=== PATIENT | male | born 1955 | race Caucasian/White ===

== ENCOUNTER 2017-06-06 09:27 | Emergency (ER) | payer OTHER ==
[2017-06-06] MEDS ORDERED: ASPIRIN 81 MG CHEWABLE TAB PO ONE (09:30)
[2017-06-06 09:40] VITALS: TEMP 98.4
--- NOTE | 2017-06-06 09:44 | EDPHY ---
H & P Time Seen by Provider: 06/06/17 09:29 HPI/ROS: HPI Left mid back pain. 61-year-old male by private vehicle. Recently flew back from [place]. Prior history of pulmonary embolism. Complains of left upper flank pain, pain below his scapular angle which he describes as pleurisy and positional. Onset yesterday afternoon. Describes it as a dull ache when resting. Reports that when he moves from [id number] it is very sharp and worse. He reports pain is worse with taking a deep breath. No shortness of breath specifically at rest. He denies chest pain. No fever. No cough. Patient reports he took 325 mg of chewed aspirin just prior to arrival. ROS: Constitutional: No fever, no chills. No weakness. Eyes: No discharge. No changes in vision. ENT: No sore throat. No nasal congestion or rhinorrhea. Respiratory: No cough. No shortness of breath. Cardiac: No chest pain, no palpitations. Gastrointestinal: No abdominal pain, no vomiting, no diarrhea. Genitourinary: No hematuria. No dysuria or increased frequency with urination. Musculoskeletal: No back pain. No neck pain. No myalgias or arthralgias. Skin: No rashes. Neurological: No headache. No focal weakness or altered sensation. Past medical history: Thrombocytosis, he has required phlebotomies in the past. His recooperer is Dr. Ro. He also has a history of von Willebrand 's disease as well as pulmonary embolism. He is not currently on anticoagulation or antiplatelet agents. Past surgical history includes appendectomy. Social history: Here by himself. As above. Nonsmoker. Denies alcohol. Physical Exam: General Appearance: Alert, no distress. Moderately obese habitus. This patient is responding to questions appropriately and in full sentences. This patient appears well-hydrated and well-nourished. Eyes: Pupils equal and round no pallor or injection. No lid edema, erythema or injection. Respiratory: There are no retractions, lungs are clear to auscultation with good air movement bilaterally. The chest wall is stable on AP and lateral palpation. He has some vague mild discomfort on palpation of the area below his left scapular angle. No associated erythema, ecchymosis, edema, crepitus noted to this area. Cardiovascular: Regular rate and rhythm. No murmur. Gastrointestinal: Abdomen is soft and nontender, no masses, bowel sounds normal. No focal tenderness at McBurney's point. No Olsen sign. Neurological: Motor sensory function is grossly intact. Cranial nerves are normal. Gait is normal. Skin: Warm and dry, no rashes. Musculoskeletal: Neck is supple and nontender. Extremities are symmetrical. All joints range without pain or impingement. Psychiatric: No agitation. No depression. Database: EKG: Vital signs reviewed. He is afebrile. Vital signs otherwise unremarkable. EKG time is 9:41 a.m.; EKG shows a narrow complex normal sinus rhythm with a ventricular rate of 86. Left axis deviation noted. The CA, QRS, QT intervals are within normal limits. There are no ST-T wave changes indicative of ischemic or injury pattern. No evidence of right heart strain. Interpreted by me. Imaging: Chest x-ray AP portable; the cardiac mediastinal silhouette is unremarkable. No evidence of infiltrate or pneumothorax. No acute cardiopulmonary disease process noted. Interpreted by me. Procedures: Emergency department course: Sitting upright on the gurney. He denies any significant pain. IV was placed. He was placed on a monitor. EKG performed and reviewed by myself. 10:40 a.m., patient re-evaluated. Resting comfortably at this time. No pain or discomfort. Results of chest x-ray, EKG and blood work discussed with him. Results of his CBC are comparable to prior blood draws. He tells me that this pain feels similar to his pleurisy which she has had in the past and not similar to his pulmonary embolism. His presentation is not consistent with acute coronary syndrome or pneumonia as well. 11:45 a.m., patient re-evaluated. Resting comfortably at this time. Denies any pain. Results of his urinalysis reviewed. I discussed admission for observation. I discussed the reasoning for this. He engaged in shared decision making. He does not want to be admitted and is declining admission. He has been well informed. He has capacitance and competence to make this decision. I reviewed follow up with him. Strict return to emergency department precautions were discussed with him. All of his questions were answered. He was discharged in good condition. Differential Diagnosis: The differential diagnosis on this patient includes but is not limited to pleurisy, costochondritis. Acute coronary syndrome, pulmonary embolism, pneumonia, pneumothorax, nephrolithiasis unlikely. This represents a partial list of diagnoses considered. These considerations are based on history, physical exam, past history, reassessment and diagnostic testing. Smoking Status: Never smoked Constitutional: Initial Vital Signs Temperature (C) 36.9 C 06/06/17 09:30 Heart Rate 96 06/06/17 09:30 Respiratory Rate 20 06/06/17 09:30 Blood Pressure 129/85 H 06/06/17 09:30 O2 Sat (%) 95 06/06/17 09:30 O2 Delivery Mode Room Air Allergies/Adverse Reactions: Penicillins Allergy (Verified 06/06/17 09:40) Home Medications: Medication Instructions Recorded ASPIRIN 04/15/14 Medical Decision Making - Diagnostics Imaging Results: Imaging Impressions Chest X-Ray 06/06/17 09:30 Impression: Clear lungs. Negative portable chest. - Data Points Laboratory Results: Laboratory Results 06/06/17 09:56 06/06/17 09:56 06/06/17 06/06/17 06/06/17 11:30 09:56 09:56 WBC RBC Hgb Hct MCV MCH MCHC RDW Plt Count MPV Neut % (Auto) Lymph % (Auto) [place] % (Auto) Eos % (Auto) Baso % (Auto) Nucleat RBC Rel Count Absolute Neuts (auto) Absolute Lymphs (auto) Absolute Monos (auto) Absolute Eos (auto) Absolute Basos (auto) Absolute Nucleated RBC Immature Gran % Immature Gran # Platelet Estimate Hypochromasia Microcytic Cells Oval Macrocytes PT 16.5 SEC H SEC (12.0-15.0) INR 1.36 H (0.83-1.16) APTT 45.8 SEC H SEC (23.0-38.0) D-Dimer < 0.27 ug/mLFEU ug/mLFEU (0.00-0.50) Sodium 140 mEq/L mEq/L (134-144) Potassium 5.0 mEq/L mEq/L (3.5-5.2) Chloride 103 mEq/L mEq/L (97-110) Carbon Dioxide 22 mEq/l mEq/l (22-31) Anion Gap 15 mEq/L mEq/L (8-16) BUN 12 mg/dL mg/dL (7-23) Creatinine 0.9 mg/dL mg/dL (0.7-1.3) Estimated GFR > 60 Glucose 137 mg/dL H mg/dL (70-100) Calcium 9.1 mg/dL mg/dL (8.5-10.4) Creatine Kinase 80 IU/L IU/L (0-224) CK-MB (CK-2) Fraction 1.59 ng/mL ng/mL (0.00-4.55) Troponin I < 0.012 ng/mL ng/mL (0.000-0.034) Urine Color YELLOW Urine Appearance CLEAR Urine pH 7.0 (5.0-7.5) Ur Specific Custer <= 1.005 (1.002-1.030) Urine Protein NEGATIVE (NEGATIVE) Urine Ketones NEGATIVE (NEGATIVE) Urine Blood NEGATIVE (NEGATIVE) Urine Nitrate NEGATIVE (NEGATIVE) Urine Bilirubin NEGATIVE (NEGATIVE) Urine Urobilinogen 0.2 EU EU (0.2-1.0) Ur Leukocyte Esterase NEGATIVE (NEGATIVE) Urine Glucose NEGATIVE (NEGATIVE) 06/06/17 09:56 WBC 9.89 10^3/uL H 10^3/uL (3.80-9.50) RBC 7.30 10^6/uL H 10^6/uL (4.40-6.38) Hgb 16.5 g/dL g/dL (13.7-17.5) Hct 53.2 % H % (40.0-51.0) MCV 72.9 fL L fL (81.5-99.8) MCH 22.6 pg L pg (27.9-34.1) MCHC 31.0 g/dL L g/dL (32.4-36.7) RDW 21.4 % H % (11.5-15.2) Plt Count 510 10^3/uL H 10^3/uL (150-400) MPV 9.2 fL fL (8.7-11.7) Neut % (Auto) 79.0 % H % (39.3-74.2) Lymph % (Auto) 9.0 % L % (15.0-45.0) [place] % (Auto) 8.2 % % (4.5-13.0) Eos % (Auto) 2.8 % % (0.6-7.6) Baso % (Auto) 0.6 % % (0.3-1.7) Nucleat RBC Rel Count 0.0 % % (0.0-0.2) Absolute Neuts (auto) 7.81 10^3/uL H 10^3/uL (1.70-6.50) Absolute Lymphs (auto) 0.89 10^3/uL L 10^3/uL (1.00-3.00) Absolute Monos (auto) 0.81 10^3/uL H 10^3/uL (0.30-0.80) Absolute Eos (auto) 0.28 10^3/uL 10^3/uL (0.03-0.40) Absolute Basos (auto) 0.06 10^3/uL 10^3/uL (0.02-0.10) Absolute Nucleated RBC 0.00 10^3/uL 10^3/uL (0-0.01) Immature Gran % 0.4 % % (0.0-1.1) Immature Gran # 0.04 10^3/uL 10^3/uL (0.00-0.10) Platelet Estimate INCREASED H (ADEQ) Hypochromasia 2+ H Microcytic Cells 2+ H Oval Macrocytes 1+ H PT INR APTT D-Dimer Sodium Potassium Chloride Carbon Dioxide Anion Gap BUN Creatinine Estimated GFR Glucose Calcium Creatine Kinase CK-MB (CK-2) Fraction Troponin I Urine Color Urine Appearance Urine pH Ur Specific Custer Urine Protein Urine Ketones Urine Blood Urine Nitrate Urine Bilirubin Urine Urobilinogen Ur Leukocyte Esterase Urine Glucose Medications Given: Discontinued Medications Aspirin (Aspirin) 324 mg PO EDNOW ONE Stop: 06/06/17 09:31 Last Admin: 06/06/17 09:51 Dose: Not Given Sodium Chloride (Ns) 500 mls @ 0 mls/hr IV EDNOW ONE PRN Reason: Wide Open Stop: 06/06/17 09:58 Last Admin: 06/06/17 10:00 Dose: Not Given Departure - Departure Disposition: Home, Routine, Self-Care Clinical Impression: Upper back pain on left side, Pleurisy Condition: Good Instructions: Pleurisy (ED), Back Pain (ED) Additional Instructions: Read and follow provided instructions. Follow-up with your primary care physician on Friday for re-evaluation . Ibuprofen dosin mg every 6 hours with meals for the next 2-3 days only. Take only as needed for pain. Return to the emergency department immediately for worsening pain, chest pain specifically, shortness of breath, fever, cough or other serious concerns. Referrals: Ivonne Barraza MD [Primary Care Provider] - As per Instructions
--- NOTE | 2017-06-06 09:45 | CPEKG ---
Heart Rate: 86 RR Interval: 698 P-R Interval: 176 QRSD Interval: 92 QT Interval: 384 QTC Interval: 460 P Pelham: 65 QRS Pelham: -38 T Wave Pelham: 23 EKG Severity - BORDERLINE ECG - EKG Impression: SINUS RHYTHM EKG Impression: LEFT AXIS DEVIATION EKG Impression: CONSIDER ANTERIOR INFARCT Electronically Signed By: Zana Crawford 06-Jun-2017 09:49:10
[2017-06-06] MEDS ORDERED: NS 500 ML IV ONE (09:57)
[2017-06-06 09:59] LABS: % IMMATURE GRANULYOCYTES 0.4 % (0.0-1.1); ABSOLUTE IMMATURE GRANULOCYTES 0.04 10^3/uL (0.00-0.10); ADD DIFF? NO; ADD MORPH? YES; ADD SCAN? NO; ATYPICAL LYMPHOCYTE FLAG 0 (0-99); FRAGMENT RBC FLAG 40 (0-99); HEMATOCRIT 53.2 % (40.0-51.0); HEMOGLOBIN 16.5 g/dL (13.7-17.5); LEFT SHIFT FLG 0 (0-99); LIPEMIA HEMOLYSIS FLAG 80 (0-99); MEAN CELL HEMOGLOBIN 22.6 pg (27.9-34.1); MEAN CELL VOLUME 72.9 fL (81.5-99.8); MEAN PLATELET VOLUME 9.2 fL (8.7-11.7); PLATELET CLUMPS FLAG 0 (0-99); PLATELET COUNT 510 10^3/uL (150-400)
[2017-06-06 10:08] LABS: RED CELL DISTRIBUTION WIDTH 21.4 % (11.5-15.2)
[2017-06-06 10:18] LABS: INR 1.36 (0.83-1.16); PROTIME(PATIENT) 16.5 SEC (12.0-15.0)
[2017-06-06 10:19] LABS: APTT 45.8 SEC (23.0-38.0)
[2017-06-06 10:24] LABS: ANION GAP 15 mEq/L (8-16); CALCIUM 9.1 mg/dL (8.5-10.4); CARBON DIOXIDE 22 mEq/l (22-31); CHLORIDE 103 mEq/L (97-110); CREATININE 0.9 mg/dL (0.7-1.3); GLOMERULAR FILTRATION RATE > 60; GLUCOSE 137 mg/dL (70-100); SODIUM 140 mEq/L (134-144)
[2017-06-06 10:29] LABS: HYPOCHROMIA 2+; MACROCYTES 1+; MICROCYTES 2+; PLATELET ESTIMATE INCREASED (ADEQ)
[2017-06-06 10:35] LABS: CREATINE KINASE-MB FRACTION 1.59 ng/mL (0.00-4.55); TROPONIN I < 0.012 ng/mL (0.000-0.034)
[2017-06-06 11:36] VITALS: RESP 20; O2SAT 96
[2017-06-06 11:42] LABS: COLOR YELLOW; LEUKOCYTE ESTERASE,URINE NEGATIVE (NEGATIVE); NITRITE,URINE NEGATIVE (NEGATIVE)
[2017-06-06 12:01] VITALS: BP 114/76; PULSE 78
== END 2017-06-06 11:52 | disposition home or self-care (01) ==
LOC: CED 09:27
DX: R09.1 Pleurisy (principal); M54.6 Pain in thoracic spine
CPT/HCPCS: 71010-PO; 80048-PO; 81003-PO; 82550-PO; 82553-PO; 84484-PO; 85025-PO; 85378-PO; 85610-PO; 85730-PO

== ENCOUNTER 2018-11-17 15:50 | Inpatient (IN) | payer OTHER ==
--- NOTE | 2018-11-17 16:31 | EDPHY ---
HPI/HX/ROS/PE/MDM Narrative: CHIEF COMPLAINT: Loss of vision in R eye HISTORY OF PRESENT ILLNESS: This patient is a 62-year-old male with history of polycythemia vera, splenomegaly, Von Willebrand disease, and hypertension. He was recently admitted at [facility] for a ruptured spleen likely due to straining with severe vomiting. On evening, five days ago, he noted a "stripe" down the middle of his right visual field, extending from the top nearly to the middle, with a jagged lower border. He denies any eye pain. He has frequent diplopia, ongoing since 19 following trauma to the right eye. He denies headache. The patient has ongoing left-sided abdominal pain, largely unchanged since his discharge. He denies any hematemesis, hemoptysis, or hematochezia. He did have an episode of epistaxis, but otherwise denies any unusual bleeding. He endorses some hot flashes and chills, and mild confusion/ amnesia. He has history of peripheral neuropathy, and denies any changes. No chest pain, shortness of breath, palpitations, vomiting, diarrhea, urinary complaints, headache, lightheadedness. REVIEW OF SYSTEMS: A comprehensive 10 system review of systems is otherwise negative aside from elements mentioned in the history of present illness and medical decision making. PAST MEDICAL HISTORY: Polycythemia vera, splenomegaly, Von Willebrand disease, and hypertension. Takes ASA, hydroxyurea. History of PE following a surgery 12 years ago. Not currently anticoagulated. SOCIAL HISTORY: Oncologist Dr. Ro, Dr. Maya. Nonsmoker. , at bedside. Does not abuse alcohol or illicit drugs. Originally from [place]. VITAL SIGNS: Reviewed by me GENERAL: Pale. Well-developed, well-nourished, resting comfortably in no respiratory distress. HEENT: Atraumatic. Eyes: Patient has inability to look up with right eye, which he notes is chronic for him. No icterus, no injection. Mouth: moist mucous membranes. No erythema or lesions. Neck: supple with no adenopathy. LUNGS: Clear to auscultation bilaterally, no wheezes, rhonchi or rales. CARDIAC: Regular rate and rhythm, no rubs, murmurs or gallops. ABDOMEN: Firm tenderness over LUQ and left lateral abdominal wall, no ecchymosis. BACK: No CVA tenderness. EXTREMITIES: No trauma. No edema. Range of motion is normal throughout. NEURO: Alert and oriented, grossly nonfocal. SKIN: Warm and dry, no rash. PSYCHIATRIC: Normal mentation, no agitation. Portions of this note were transcribed by a medical engineer. I personally performed a history, physical exam, medical decision making, and confirmed accuracy of information the transcribed note. ED Course: 62 year old male with history of polycythemia vera, Von Willebrand disease, and recent admission for splenic rupture presents with concerns due to segmental loss of vision in right visual field. Plan for CT per request of his providers at [facility]. 16:[address] Zafar, radiologist. CT head and CTA head/neck are negative for acute processes. Platelets critically elevated at 3 million. WBC elevated at 40,000. 18:[address] Stanford oncologist. Recommend admission to the hospital. Patient is certainly at increased risk for stroke. Plan to administer extra dose of hydroxyurea. 18:46 Spoke with hospitalist service. Dr. Lugo accepts admission for right eye vision loss, polycythemia vera, thrombocytosis. 20:00 Patient's now appears to be in atrial fibrillation. Heart rate is irregularly irregular, rate 103-120. He denies any history of atrial fibrillation in the past. Patient states that about one hour ago, he felt he had a spasm in his right chest. He does note that he has had discomfort in his left clavicle area for the past 2-3 days. Patient tells me that he was most concerned not about the increasing heart rate but about the blood sugar and has concerns about is that mean he is bleeding again. Plan for repeat i-stat chem 8 , i-stat troponin. 12-LEAD EKG: Please see the full report in [facility]. My interpretation: Atrial fibrillation Repeat troponin 0.00. Repeat I-stat showed elevated creatinine of 2.4. This is markedly elevated compared to earlier creatinine of 0.9. We will repeat this test in the lab. Repeat CBC is normal with no evidence of acute hemorrhage. Repeat creatinine in the lab is 0.8. Previously noted elevated creatinine appears to be a machine error. Plan to proceed with admission as above. MDM: My differential diagnosis Differential diagnoses for the patient's symptom complex was considered including but not limited to arterial thrombus, stroke, vitreous hemorrhage, embolic stroke, thrombocytosis. - Data Points Imaging Results: Imaging Impressions Head CT 11/17/18 16:32 Impression: 1. No acute intracranial process. 2. Groundglass subcentimeter lesion in the midline frontal bone is incompletely characterized but probably represents a benign process. CT Angiogram Head and Neck With Contrast History: visual field cut for 5 days hx polycythemia vera. Comparison: Unenhanced CT head same day. Technique: Axial contrast-enhanced images were obtained from the vertex through the thoracic inlet following the uneventful intravenous administration of 85 mL Isovue-370. Multiplanar reformations were performed. Dose reduction techniques were utilized. Findings: Angiogram Head: The A1 and A2 segments of the anterior cerebral arteries are patent. The M1 and M2 segments of the middle cerebral arteries are patent. The anterior communicating artery is normal. The basilar artery and P1 and P2 segments of the posterior cerebral arteries are patent. No significant stenoses are identified. There is no visible aneurysm. There is no visible hemorrhage or vascular malformation. Angiogram Neck: The visible aorta is normal caliber. Conventional three-vessel arch anatomy is present. There is no significant stenosis in the common and internal carotid arteries . There is no significant vertebral artery stenosis . Irregularity of the right vertebral artery at the level of C2 is probably related to streak artifact. The subclavian arteries are patent in their visualized extent. No pathologically enlarged lymph nodes are identified. No aggressive osseous lesions are present. Mild degenerative changes of the cervical spine. There is a partially visualized left pleural effusion. Impression: 1. Normal CT angiogram of the head and neck. 2. Partially visualized left pleural effusion. Stenoses are calculated using [place] Symptomatic Carotid Endarterectomy Trial (NASCET) criteria. Findings and recommendations discussed with Tiffanie Zelaya MD at 1655 hour, 11/17/2018. Head CTA 11/17/18 16:32 Impression: 1. Normal CT angiogram of the head and neck. 2. Partially visualized left pleural effusion. Stenoses are calculated using [place] Symptomatic Carotid Endarterectomy Trial (NASCET) criteria. Findings and recommendations discussed with Tiffanie Zelaya MD at 1655 hour, 11/17/2018. Neck CTA 11/17/18 16:32 Impression: 1. Normal CT angiogram of the head and neck. 2. Partially visualized left pleural effusion. Stenoses are calculated using [place] Symptomatic Carotid Endarterectomy Trial (NASCET) criteria. Findings and recommendations discussed with Tiffanie Zelaya MD at 1655 hour, 11/17/2018. Imaging: Discussed imaging studies w/ manager call center Radiologist Laboratory Results: Laboratory Results 11/17/18 17:07 11/17/18 17:07 11/17/18 11/17/18 11/17/18 17:18 17:07 17:07 WBC 39.58 10^3/uL H 10^3/uL (3.80-9.50) RBC 4.52 10^6/uL 10^6/uL (4.40-6.38) Hgb 10.3 g/dL L g/dL (13.7-17.5) Hct 35.2 % L % (40.0-51.0) MCV 77.9 fL L fL (81.5-99.8) MCH 22.8 pg L pg (27.9-34.1) MCHC 29.3 g/dL L g/dL (32.4-36.7) RDW 19.1 % H % (11.5-15.2) Plt Count 2971 10^3/uL H* 10^3/uL (150-400) MPV 9.4 fL fL (8.7-11.7) Neut % (Auto) Not Reported Lymph % (Auto) Not Reported Bowman % (Auto) Not Reported Eos % (Auto) Not Reported Baso % (Auto) Not Reported Nucleat RBC Rel Count Not Reported Absolute Neuts (auto) Not Reported Absolute Lymphs (auto) Not Reported Absolute Monos (auto) Not Reported Absolute Eos (auto) Not Reported Absolute Basos (auto) Not Reported Absolute Nucleated RBC Not Reported Immature Gran % Not Reported Seg Neutrophils % 87.0 % % Band Neutrophils % 0.0 % % Lymphocytes % 4.0 % % Monocytes % 9.0 % % Eosinophils % 0.0 % % Basophils % 0.0 % % Metamyelocytes % 0.0 % % Myelocytes % 0.0 % % Promyelocytes % 0.0 % % Blast Cells % 0.0 % % Immature Gran # Not Reported Absolute Seg Neuts 35.01 10^3/uL H 10^3/uL (1.70-6.50) Absolute Band Neuts 0.00 10^3/uL 10^3/uL (0.00-0.70) Absolute Lymphocytes 1.61 10^3/uL 10^3/uL (1.00-3.00) Absolute Monocytes 3.62 10^3/uL H 10^3/uL (0.30-0.80) Absolute Eosinophils 0.00 10^3/uL L 10^3/uL (0.03-0.40) Absolute Basophils 0.00 10^3/uL L 10^3/uL (0.02-0.10) Absolute Metamyelocyte 0.00 10^3/mL 10^3/mL (0.00-0.00) Absolute Myelocytes 0.00 10^3/mL 10^3/mL (0.00-0.00) Absolute Promyelocytes 0.00 10^3/uL 10^3/uL (0.00-0.00) Absolute Plasma Cells 0.00 10^3/uL 10^3/uL (0.00-0.00) Nucleated RBCs 0 /100 WBC /100 WBC (0-0) Absolute Blast Cells 0.00 10^3/uL 10^3/uL (0.00-0.00) Plasma Cells % 0.0 % % Platelet Estimate INCREASED H (ADEQ) Polychromasia 1+ H Hypochromasia 2+ H Microcytic Cells 2+ H Tear Drop Cells 1+ H Elliptocytes 1+ H Smear Review By Pending Sodium 131 mEq/L L mEq/L (135-145) Potassium 5.8 mEq/L H mEq/L (3.5-5.2) Chloride 101 mEq/L mEq/L (97-110) Carbon Dioxide 24 mEq/l mEq/l (22-31) Anion Gap 6 mEq/L mEq/L (6-14) BUN 13 mg/dL mg/dL (7-23) Creatinine 0.9 mg/dL mg/dL (0.7-1.3) Estimated GFR > 60 Glucose 90 mg/dL mg/dL (70-100) Calcium 9.7 mg/dL mg/dL (8.5-10.4) POC Troponin I 0.00 ng/mL ng/mL (0.00-0.08) Medications Given: Diltiazem/Dextrose (Diltiazem 125mg/125ml (Premix)) 125 mls @ 0 mls/hr IV CONT RASHARD; Per Protocol PRN Reason: Protocol Stop: 05/16/19 22:44 Last Admin: 11/17/18 23:44 Dose: 125 mls Oxycodone HCl (Oxycodone Ir) 5 mg PO Q4 PRN PRN Reason: Pain, Severe Able to Take PO Stop: 11/27/18 21:28 Last Admin: 11/17/18 23:42 Dose: 5 mg Discontinued Medications Hydroxyurea (Hydrea) 500 mg PO EDNOW ONE Stop: 11/17/18 18:12 Last Admin: 11/17/18 19:14 Dose: 500 mg Sodium Chloride (Ns) 1,000 mls @ 0 mls/hr IV ONCE ONE; Wide Open PRN Reason: Protocol Stop: 11/17/18 18:12 Last Admin: 11/17/18 19:15 Dose: 1,000 mls Point of Care Test Results: Chemistry 11/17/18 17:18 POC Troponin I 0.00 ng/mL ng/mL (0.00-0.08) General Time Seen by Provider: 11/17/18 16:10 Initial Vital Signs: Initial Vital Signs Temperature (C) 36.7 C 11/17/18 15:58 Heart Rate 90 11/17/18 15:58 Respiratory Rate 18 11/17/18 15:58 Blood Pressure 121/78 H 11/17/18 15:58 O2 Sat (%) 96 11/17/18 15:58 O2 Delivery Mode Room Air Allergies/Adverse Reactions: Penicillins Allergy (Verified 11/17/18 15:57) Home Medications: Medication Instructions Recorded Acetaminophen [Tylenol ES 500 mg 1,000 mg PO BID 11/17/18 (*)] Aspirin EC [Aspirin EC 81 mg (*)] 324 mg PO DAILY 11/17/18 Herbals/Supplements -Info Only 1 ea PO DAILY 11/17/18 Hydroxyurea [Hydrea 500 mg (*)] 500 mg PO DAILY 11/17/18 Ibuprofen [Advil] 400 mg PO DAILY PRN 11/17/18 Melatonin [Melatonin 3 MG (*)] 3 mg PO HS PRN 11/17/18 Multivitamins [Multivitamin (*)] 1 each PO DAILY 11/17/18 Polyethylene Glycol 3350 [Miralax 17 gm PO BID PRN 11/17/18 17 gm (*)] Tamsulosin HCl [Flomax 0.4 MG (*)] 0.4 mg PO HS 11/17/18 oxyCODONE IR [Oxycodone Ir (*)] 5 mg PO Q4 PRN 11/17/18 Departure - Departure Disposition: [facility] Acute Clinical Impression: Thrombocytosis, Polycythemia vera, Splenic rupture with embolization Atrial fibrillation Qualifiers: Atrial fibrillation type: unspecified Qualified Code(s): I48.91 - Unspecified atrial fibrillation Condition: Fair Report Scribed for: Tiffanie Zelaya Report Scribed by: Laisha Glover Date of Report: 11/17/18 Time of Report: 16:30
[2018-11-17] MEDS ORDERED: IOHEXOL 350mgI/ML (OMNIPAQUE) 150 ML BTL IV ONE (17:01)
[2018-11-17 17:30] LABS: PLATELET COUNT 2971 10^3/uL (150-400)
[2018-11-17] MEDS ORDERED: HYDROXYUREA 500 MG CAP PO ONE (18:11)
[2018-11-17] MEDS ORDERED: NS 1,000 ML IV ONE (18:11)
[2018-11-17 19:39] LABS: INR 1.16 (0.83-1.16)
[2018-11-17 21:12] LABS: PLATELET COUNT 2913 10^3/uL (150-400)
[2018-11-17] MEDS ORDERED: oxyCODONE IR 5 MG TAB PO PRN (21:28)
[2018-11-17] MEDS ORDERED: ONDANSETRON 4 MG/2 ML VIAL IVP PRN (21:28)
[2018-11-17] MEDS ORDERED: ONDANSETRON DISINTEGRATING 4 MG TAB PO PRN (21:28)
[2018-11-17] MEDS ORDERED: HYDROmorphONE/DILAUDID 1 MG/ML INJ IVP PRN (21:28)
[2018-11-17] MEDS ORDERED: ACETAMINOPHEN 325 MG TAB PO PRN (21:28)
--- NOTE | 2018-11-17 21:54 | PDGENHP ---
History and Physical - Chief Complaint right eye vision loss - History of Present Illness 62yo M with essential thrombocytosis, ERIC-2 positive polycythemia vera, remote provoked PE off anticoagulation, recent hospitalization for splenic laceration complicated by hemoperitoneum requiring urgent IR splenic artery embolization ( discharged from [facility] on 11/09) presents with right eye vision changes. Went to [facility] today and reported that he had acute onset vision loss in upper outer quadrant of right eye last (5 days ago). His oncologist instructed him to immediately go to the ED. These vision changes have persisted and are still present. He otherwise denies any neurologic symptoms. He has mild but stable left sided abdominal pain since leaving the hospital last week. No other signs of blood loss. In the ED, his platelets were found to be 3 million. His WBC was approximately 40k and hemoglobin 10. Dr Stanford was consulted and recommended that he receive an additional dose of hydroxyurea, which was given. While in the ED, the patient went into afib with HR in the 140s. His BP was stable and he was asymptomatic. He is being admitted for further evaluation of management of above issues. Case discussed with ED physician Tiffanie Zelaya. History Information - Allergies/Home Medication List Allergies/Adverse Reactions: Penicillins Allergy (Verified 11/17/18 15:57) Home Medications: Acetaminophen [Tylenol ES 500 mg (*)] 1,000 mg PO BID 11/17/18 [Last Taken Unknown] Aspirin EC [Aspirin EC 81 mg (*)] 324 mg PO DAILY 11/17/18 [Last Taken 11/16/18] Herbals/Supplements -Info Only 1 ea PO DAILY 11/17/18 [Last Taken Unknown] Hydroxyurea [Hydrea 500 mg (*)] 500 mg PO DAILY 11/17/18 [Last Taken 11/17/18] Ibuprofen [Advil] 400 mg PO DAILY PRN 11/17/18 [Last Taken Unknown] Melatonin [Melatonin 3 MG (*)] 3 mg PO HS PRN 11/17/18 [Last Taken Unknown] Multivitamins [Multivitamin (*)] 1 each PO DAILY 11/17/18 [Last Taken Unknown] Polyethylene Glycol 3350 [Miralax 17 gm (*)] 17 gm PO BID PRN 11/17/18 [Last Taken 11/16/18] Tamsulosin HCl [Flomax 0.4 MG (*)] 0.4 mg PO HS 11/17/18 [Last Taken 11/16/18] oxyCODONE IR [Oxycodone Ir (*)] 5 mg PO Q4 PRN 11/17/18 [Last Taken Unknown] I have personally reviewed and updated: family history, medical history, social history, surgical history - Past Medical History Additional medical history: Essential thrombocytosis, ERIC-2 positive polycythemia vera requiring phlebotomy, PE after abdominal surgery 12 years ago - no longer on anticoagulation, recent splenic injury with acute blood loss, acquired von Willebrand disease - Surgical History Additional surgical history: appendectomy, recent splenic artery embolization - Family History Positive for: non-pertinent - Social History Smoking Status: Never smoked Alcohol Use: None Drug Use: None Additional social history: Lives with , who is at bedside. 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 Originally from the [place]. Review of Systems Review of Systems: ROS: 10pt was reviewed & negative except for what was stated in HPI & below Physical Exam Physical Exam: Temp Pulse Resp BP Pulse Ox 36.7 C 120 H 18 105/75 93 11/17/18 15:58 11/17/18 19:40 11/17/18 19:40 11/17/18 19:40 11/17/18 19:40 Constitutional: no apparent distress, appears nourished, not in pain Eyes: PERRL, anicteric sclera, EOMI Ears, Nose, Mouth, Throat: moist mucous membranes, hearing normal, ears appear normal, no oral mucosal ulcers Cardiovascular: no murmur, rub, or gallop, tachycardia, No JVD, No edema Respiratory: no respiratory distress, no rales or rhonchi, clear to auscultation Gastrointestinal: normoactive bowel sounds, soft, non-tender abdomen, distension Genitourinary: no bladder fullness, no bladder tenderness Skin: other (small periumbilical bruise) Musculoskeletal: full muscle strength Neurologic: AAOx3 Psychiatric: interacting appropriately Lab Data & Imaging Review 11/17/18 21:00 11/17/18 20:35 WBC 41.44 10^3/uL (3.80-9.50) H 11/17/18 21:00 RBC 4.83 10^6/uL (4.40-6.38) 11/17/18 21:00 Hgb 11.1 g/dL (13.7-17.5) L 11/17/18 21:00 POC Hgb 13.6 gm/dL (13.7-17.5) L 11/17/18 20:21 Hct 36.8 % (40.0-51.0) L 11/17/18 21:00 POC Hct 40 % (40-51) 11/17/18 20:21 MCV 76.2 fL (81.5-99.8) L 11/17/18 21:00 MCH 23.0 pg (27.9-34.1) L 11/17/18 21:00 MCHC 30.2 g/dL (32.4-36.7) L 11/17/18 21:00 RDW 19.8 % (11.5-15.2) H 11/17/18 21:00 Plt Count 2913 10^3/uL (150-400) H* 11/17/18 21:00 MPV 9.3 fL (8.7-11.7) 11/17/18 21:00 Neut % (Auto) Not Reported 11/17/18 21:00 Lymph % (Auto) Not Reported 11/17/18 21:00 Armstrong % (Auto) Not Reported 11/17/18 21:00 Eos % (Auto) Not Reported 11/17/18 21:00 Baso % (Auto) Not Reported 11/17/18 21:00 Nucleat RBC Rel Count Not Reported 11/17/18 21:00 Absolute Neuts (auto) Not Reported 11/17/18 21:00 Absolute Lymphs (auto) Not Reported 11/17/18 21:00 Absolute Monos (auto) Not Reported 11/17/18 21:00 Absolute Eos (auto) Not Reported 11/17/18 21:00 Absolute Basos (auto) Not Reported 11/17/18 21:00 Absolute Nucleated RBC Not Reported 11/17/18 21:00 Immature Gran % Not Reported 11/17/18 21:00 Seg Neutrophils % 82.5 % 11/17/18 21:00 Band Neutrophils % 0.0 % 11/17/18 21:00 Lymphocytes % 0.0 % 11/17/18 21:00 Monocytes % 8.7 % 11/17/18 21:00 Eosinophils % 4.9 % 11/17/18 21:00 Basophils % 0.0 % 11/17/18 21:00 Metamyelocytes % 0.0 % 11/17/18 21:00 Myelocytes % 0.0 % 11/17/18 21:00 Promyelocytes % 0.0 % 11/17/18 21:00 Blast Cells % 0.0 % 11/17/18 21:00 Immature Gran # Not Reported 11/17/18 21:00 Absolute Seg Neuts 34.19 10^3/uL (1.70-6.50) H 11/17/18 21:00 Absolute Band Neuts 0.00 10^3/uL (0.00-0.70) 11/17/18 21:00 Absolute Lymphocytes 0.00 10^3/uL (1.00-3.00) L 11/17/18 21:00 Absolute Monocytes 3.61 10^3/uL (0.30-0.80) H 11/17/18 21:00 Absolute Eosinophils 2.03 10^3/uL (0.03-0.40) H 11/17/18 21:00 Absolute Basophils 0.00 10^3/uL (0.02-0.10) L 11/17/18 21:00 Absolute Metamyelocyte 0.00 10^3/mL (0.00-0.00) 11/17/18 21:00 Absolute Myelocytes 0.00 10^3/mL (0.00-0.00) 11/17/18 21:00 Absolute Promyelocytes 0.00 10^3/uL (0.00-0.00) 11/17/18 21:00 Absolute Plasma Cells 0.00 10^3/uL (0.00-0.00) 11/17/18 21:00 Nucleated RBCs 0 /100 WBC (0-0) 11/17/18 21:00 Atypical Lymphocytes 1+ H 11/17/18 21:00 Absolute Blast Cells 0.00 10^3/uL (0.00-0.00) 11/17/18 21:00 Plasma Cells % 0.0 % 11/17/18 21:00 Platelet Estimate INCREASED (ADEQ) H 11/17/18 21:00 Polychromasia 1+ H 11/17/18 21:00 Hypochromasia 2+ H 11/17/18 21:00 Microcytic Cells 2+ H 11/17/18 21:00 Tear Drop Cells 1+ H 11/17/18 21:00 Elliptocytes 1+ H 11/17/18 21:00 PT 15.0 SEC (12.0-15.0) 11/17/18 19:15 INR 1.16 (0.83-1.16) 11/17/18 19:15 POC Sodium 136 mEq/L (135-145) 11/17/18 20:21 Sodium 130 mEq/L (135-145) L 11/17/18 20:35 POC Potassium 4.3 mEq/L (3.3-5.0) 11/17/18 20:21 Potassium 5.5 mEq/L (3.5-5.2) H 11/17/18 20:35 POC Chloride 99 mEq/L (97-110) 11/17/18 20:21 Chloride 104 mEq/L (97-110) 11/17/18 20:35 Carbon Dioxide 18 mEq/l (22-31) L 11/17/18 20:35 POC Total CO2 24 mEq/L (22-31) 11/17/18 20:21 Anion Gap 8 mEq/L (6-14) 11/17/18 20:35 POC BUN 9 mg/dL (7-23) 11/17/18 20:21 BUN 11 mg/dL (7-23) 11/17/18 20:35 Creatinine 0.8 mg/dL (0.7-1.3) 11/17/18 20:35 POC Creatinine 2.4 mg/dL (0.7-1.3) H 11/17/18 20:21 Estimated GFR > 60 11/17/18 20:35 Glucose 88 mg/dL (70-100) 11/17/18 20:35 POC Glucose 105 mg/dL (70-100) H 11/17/18 20:21 Calcium 9.0 mg/dL (8.5-10.4) 11/17/18 20:35 POC Troponin I 0.00 ng/mL (0.00-0.08) 11/17/18 20:19 Specimen Hemolysis 108 11/17/18 20:35 Assessment & Plan Assessment: 62yo M with essential thrombocytosis, ERIC-2 positive polycythemia vera, remote provoked PE off anticoagulation, recent hospitalization for splenic injury complicated by acute bleed requiring urgent splenic artery embolization presents with right eye vision loss, severe thrombocytosis. Developed atrial fibrillation in the ED. Plan: 1. Right eye vision loss: Concerning for CVA. Several risk factors for such with afib, thrombocytosis. - Brain MRI pending - Starting heparin gtt - If acute stroke, will need neurology consultation 2. Atrial fibrillation with RVR: New diagnosis per patient. - Diltiazem gtt - Anticoagulation as above (although [id number]=6 so may not need long-term AC for this) - TTE 3. Thrombocytosis: Platelets 3 million, up from 1.6 million at recent hospital discharge and baseline roughly 500k. - Discussed with Dr Stanford. Given additional dose of hydroxyurea. No indication for platelet pheresis. - Continue aspirin, hydroxyurea 4. Recent splenic injury/bleed requiring splenic artery embolization: High risk of bleeding on anticoagulation. - Monitor abdominal exam, H/H - He was vaccinated for meningococcal and pneumococcal disease 10/2018 5. Hyperkalemia: No ECG changes. Possibly due to hemolysis. Down-trending. - Telemetry, recheck in AM 6. Anemia: Hgb 10, improved from 9 on 11/09. - Monitor H/H as above 7. Hyponatremia: Mild. Suspect hypovolemic, s/p 1L NS in ED. - Check in AM VTE ppx: therapeutic anticoagulation Code: full Diet: regular Dispo: Admit as inpatient to step down unit
[2018-11-17] MEDS ORDERED: GADOBUTROL 10 ML VIAL IVP ONE (22:45)
[2018-11-17] MEDS ORDERED: HEPARIN 10,000 UNIT/10 ML MDV (1,000 UNIT/ML) IVP ONE (22:45)
[2018-11-17] MEDS: oxyCODONE IR 5 MG TAB PO PRN (23:42)
[2018-11-17] MEDS: DILTIAZEM HCL/D5W 125 ML IV SCH (23:44)
[2018-11-18] MEDS: HEPARIN/DEXTROSE 500 ML IV SCH ×2 (01:00→22:12)
[2018-11-18] MEDS: oxyCODONE IR 5 MG TAB PO PRN ×5 (04:21→20:20)
[2018-11-18 06:09] LABS: PLATELET COUNT 2936 10^3/uL (150-400)
--- NOTE | 2018-11-18 06:35 | PDMN ---
Medical Necessity Medical necessity: Pt meets inpt criteria per MD order and MCG 505, Atrial Fibrillation, Hematology GRG, Essential (hemorrhagic) thrombocythemia. 62 y/o w/ essential thrombocytosis, ERIC-2 positive polycythemia vera, and recent hospitalization for splenic lac/hemoperitoneum/urgent splenic artery embolization (dc'd on 11/09/18) presented today w/acute onset vision loss, concerning for CVA, also w/afib w/RVR (new dx), thrombocytosis w/platelet count at 2971, hyponatremia (Na 131), hypokalemia (K 6.1). Heparin gtt started, high risk of bleeding due to recent spleen inj, Diltiazem gtt, SDU care, Brain MRI, anticipate>2MN for ongoing eval/management of above.
[2018-11-18] MEDS: ACETAMINOPHEN 500 MG TAB PO SCH ×2 (07:51→20:22)
[2018-11-18] MEDS: ASPIRIN EC 81 MG TAB PO SCH (07:51)
[2018-11-18] MEDS ORDERED: CYCLOPENTOLATE/PHENYLEPHRINE 2 ML OPHT.BTL EACHEYE ONE (08:45)
[2018-11-18] MEDS ORDERED: HYDROXYUREA 500 MG CAP PO SCH (09:00)
[2018-11-18] MEDS ORDERED: TROPICAMIDE 0.5% EACHEYE ONE (09:00)
[2018-11-18] MEDS ORDERED: ENOXAPARIN 40 MG/0.4 ML SYR SC SCH (09:00)
[2018-11-18] MEDS: PANTOPRAZOLE SODIUM 40 MG TAB PO SCH (09:00)
--- NOTE | 2018-11-18 09:12 | HOSPPROG ---
Hospitalist Progress Note Assessment/Plan: DIAGNOSES: * Acute monocular partial visual field loss right eye in the central superior portion of field without ocular pain or trauma -suspect either branch retinal artery or vein occlusion, hemorrhage possible , doubt retinal attachment but also possible * Recent splenic rupture, spontaneous with arterial embolization therapy by interventional radiologist at [facility] in October -still having some discomfort but gradually getting better * New onset atrial fibrillation, rapid rate, rate currently controlled on diltiazem * Hyperkalemia, improving after treatment here * Polycythemia vera, with sudden increase in platelets from 400,000 to 2.9 million and significant leukocytosis with notable increase in monocytes -? New cell count changes due to splenic rupture and embolization -on hydroxyurea; Dr. Tung Maya * Monocytosis and eosinophilia among his white blood cells, ? 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 Gupta who will be able to see the patient today in his office down stairs here and we can Will the patient there from the unit. * Will contact Dr. Cliff Stanford of [facility] for consultation to assess blood count changes, as well as management of any anti platelet or anti coagulation therapy * Need to determine whether this is hemorrhagic, thrombo embolic, or other etiology of vision loss; will stop anticoagulant until we see what the etiology of the eye disorder is * Continue rate control for AFib * Will need meticulous blood pressure control * Check TSH * Echocardiogram Seen by me on hospitalist rounds and multidisciplinary rounds Reviewed in detail with Dr. 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: All AFib, now rate controlled Exam: alert oriented reasonably relaxed Gross bedside external ocular exam right and left is normal other than finding his dysconjugate gaze with superior gaze which is chronic; on a brief bedside visual field examination unable to determine that he has a narrow portion of the central superior visual field in the right eye only impacted with no vision there, all central vision and other visual leonard otherwise intact in both eyes skin warm dry color ok resps not labored lungs clear BSs heart regular abd soft nondistended nontender, bowel sounds present limbs warm, no edema iv site ok Lab data: Potassium now down to 4.9 WBC remains at 39,000 with 3400 monocytes and a mild eosinophilia both noted on differential; formal blood smear review is pending Heparin level in therapeutic range Objective: Vital Signs Temp Pulse Resp BP Pulse Ox 36.8 C 98 18 102/52 L 94 11/18/18 04:00 11/18/18 04:00 11/18/18 04:00 11/18/18 04:00 11/18/18 04:00 Laboratory Results 11/18/18 05:15 11/18/18 06:20 11/17/18 11/18/18 11/19/18 06:59 06:59 06:59 Intake Total 1271.5 Output Total 525 Balance 746.5 PT 15.0 SEC (12.0-15.0) 11/17/18 19:15 INR 1.16 (0.83-1.16) 11/17/18 19:15 ICD10 Worksheet Patient Problems: Problems Problem Status Onset Atrial fibrillation Acute Polycythemia vera Acute Thrombocytosis Acute
--- NOTE | 2018-11-18 11:58 | ASMTCASEMG ---
Living Arrangements What is your living Answers: With Spouse arrangement? Who do you live with? Type Of Residence What kind of residence do Answers: House you live in? Discharge Plan Comments Coordination Status Comments Notes: Patient is a 62yo male who has been admitted for right eye vision loss, concerning for CVA, AFIB, thrombocytosis, recent splenic injury, hyperkalemia, anemia and hyponatremia. No therapies ordered at this time. D/C plan TBD. CM will follow. Date Signed: 11/18/2018 11:57 AM Electronically Signed By:Senia Garcia LCSW
--- NOTE | 2018-11-18 12:18 | GCON ---
[f rep st] CONSULTATION MEDICAL ONCOLOGY FOLLOWUP CONSULTATION DATE OF CONSULTATION: 11/18/2018 REFERRING PHYSICIAN: Baldomero Marques MD REASON FOR CONSULTATION: Ongoing management of polycythemia vera and von Willebrand's disease. RECOMMENDATIONS: 1. Agree with Ophthalmology evaluation to try to find out whether the visual field defect in his rig ht eye is related to thrombotic or hemorrhagic etiology. 2. If the defect in his right eye is not hemorrhagic, I would fully anticoagulate him with low-molec ular heparin at this time. 3. I would continue his increased dose of hydroxyurea to try to bring down his platelet count. 4. The patient does not require phlebotomy for his hemoglobin at this time since he is anemic with a hemoglobin of 10.3. This is likely iron deficiency, which has been induced. 5. We will check the status of his von Willebrand's disease. I have sent a von Willebrand's panel. 6. I have also asked for manual differential to be performed since the patient's white count is much higher than it has been. We will also send a leukemia/lymphoma panel to make sure he is not transfo rming with the elevated white count. ASSESSMENT: This 62-year-old gentleman is followed by our clinic for polycythemia vera. His platele t count has been elevated for approximately 12 years. A couple of years ago, he had developed increa sed hemoglobin and the diagnosis of polycythemia vera was made. He has been managed with phlebotomie s and hydroxyurea. In October of 2018, after a vomiting episode, he developed pain in his left side. This eventually turned out to be a splenic rupture, which was treated with embolization at [facility] . He was in the hospital for approximately 2 weeks. His blood counts have markedly changed since th at hospitalization. His white count has now gone up to approximately 40,000 and his platelet count h as been hovering around 3 million. The patient had been taking 4 baby aspirin per day. He is taking this both for prophylaxis for clotting from his as well as for periodic migraine headache s. At this time, I do not have direct evidence that he has transformed into acute leukemia, but I think that will be further evaluated by the tests as mentioned above. HISTORY OF PRESENT ILLNESS: Please see assessment. PAST MEDICAL HISTORY: Is remarkable for migraine headaches, and von Willebrand's disease. He does n ot have a history of atrial fibrillation which was apparently diagnosed during this admission. FAMILY HISTORY: Remarkable for a maternal grandfather who of colon cancer at age 80. SOCIAL HISTORY: The patient is . He has no children. REVIEW OF SYSTEMS: Currently remarkable for field cut in the upper outer right visual field. He is still having pain in his left flank related to his splenic embolization and bleed. He has periumbili felisa bruising, which he has noted since his splenic rupture and he currently reports no shortness of b reath. He has had no lymphadenopathy that he has noted. Ten-system review is otherwise unremarkable . PHYSICAL EXAMINATION: GENERAL: Reveals a well-developed, alert, conversant white male who has mild pallor sitting in the chair. HEENT: Exam is unremarkable except for the pallor. LUNGS: Reveal no rales or rhonchi today. CARDIAC: Shows a regular rhythm this morning. ABDOMEN: Exam shows distend ed abdomen with firm left flank consistent with his splenomegaly and rupture. SKIN: His skin shows periumbilical ecchymosis, which is likely still residual from his bleeding. EXTREMITIES: He has 1+ lower extremity edema. LABORATORY DATA: His CBC today shows a white count of 38,960 with a hemoglobin of 10.3, an MCV of 77 .3, and a platelet count of 2,936,000. His automated differential showed 33,230 neutrophils. He had a normal absolute lymphocyte count of 1520. His absolute monocytes were elevated at 3430, and he victor d an elevated eosinophil count at 780. His PTT was 42.2, however, I believe this is after he started on heparin which has now been discontinued. His potassium is normal at 4.9 and creatinine is 0.8. Thank very much for allowing us to participate in this pleasant gentleman's hematologic care. We loo k forward to assisting with his management during this hospitalization and beyond. /[id number]/MODL
[2018-11-18 12:27] LABS: PLATELET COUNT 2810 10^3/uL (150-400)
[2018-11-18] MEDS: DILTIAZEM HCL/D5W 125 ML IV SCH (18:56)
[2018-11-18] MEDS: TAMSULOSIN HCL 0.4 MG CAP PO SCH (20:21)
[2018-11-18] MEDS: HYDROXYUREA 500 MG CAP PO SCH (20:21)
[2018-11-18] MEDS: POLYETHYLENE GLYCOL 3350 17 GM PKT PO PRN (20:38)
[2018-11-18] MEDS: HEPARIN 10,000 UNIT/10 ML MDV (1,000 UNIT/ML) IVP PRN (23:07)
[2018-11-19] MEDS: oxyCODONE IR 5 MG TAB PO PRN ×4 (04:35→19:58)
[2018-11-19 05:13] LABS: PLATELET COUNT 2893 10^3/uL (150-400)
[2018-11-19] MEDS: HEPARIN 10,000 UNIT/10 ML MDV (1,000 UNIT/ML) IVP PRN ×2 (06:38→22:17)
[2018-11-19] MEDS: DILTIAZEM SR 90 MG CAP PO SCH ×2 (07:17→19:58)
--- NOTE | 2018-11-19 08:51 | ECHO ---
[email or web address] [address] [address] Main: [phone] Fax: Transthoracic Echocardiogram Name: JESUS FOSTER MR#: [id number] Study Date: 11/18/2018 Study Time: 12:14 PM Date of : 1955 Age: 62 year(s) Height: 185.4 cm (73 in.) Weight: 94.35 kg (208 lb.) BSA: 2.19 m2 Gender: Male Examination: Echo Indication: New onset of atrial fibrillation Image Quality: Contrast: Requested by: Stas Lugo BP: / Heart Rate: Rhythm: Indication: New onset of atrial fibrillation Procedure Staff Laboratory Director: Balaji Cooper RDCS Reading Physician: Dwight Solomon MD Requesting Provider: Conclusions: Normal study Measurements: Chambers Valvular Assessment AV/MV Valvular Assessment TV/PV Normal Normal Normal Name Value Range Name Value Range Name Value Range Ao Suzette (MM): 3.6 cm (2.2 cm-3.7 AV Vmax: 1.51 m/s (1 m/s-1.7 PV Vmax: 0.95 m/s (0.6 m/s-0.9 cm) m/s) m/s) IVSd (2D): 0.9 cm (0.6 cm-1.1 AV maxP mmHg ( - ) PV PGmax: 4 mmHg ( - ) cm) LVOT Vmax: 0.90 m/s (0.7 m/s-1.1 LVDd (2D): 4.4 cm (4.2 cm-5.9 m/s) cm) MV E Vmax: 0.73 m/s ( - ) LVDs (2D): 2.6 cm (2.1 cm-4 MV A Vmax: 0.59 m/s ( - ) cm) MV E/A: 1.24 ( - ) LVPWd (2D): 0.9 cm (0.6 cm-1 cm) LVEF (2D): 70 (>=54 %) RVDd(2D): 2.6 cm (1.9 cm-3.8 cmmm) Continued Measurements: Chambers Valvular Assessment AV/MV Name Value Name Value LADs Lon.7 cm MV E' Septal: 0.07 m/s LA Area: 16.9 cm2 MV E/E' Septal: 10.60 LA Volume: 60 ml MV E/E' Lateral: 11.80 LA Volume Index: 27.4 ml/m2 Patient: JESUS FOSTER Study Date: 11/18/2018 Page 1 of 2 12:14 PM Findings: Left Ventricle: Normal size left ventricle. Normal global systolic LV function. EF is 70 %. No regional wall motion abnormality. Grade 1 diastolic dysfunction (abnormal relaxation). Right Ventricle: Normal size right ventricle. Normal RV function. Left Atrium: The left atrium is normal in size. Right Atrium: The right atrium is normal in size. Mitral Valve: The mitral valve is normal in appearance and function. Trivial mitral valve regurgitation. Aortic Valve: The aortic valve is tri-leaflet. The aortic valve is normal in appearance and function. There is no significant aortic valve regurgitation. Tricuspid Valve: The tricuspid valve is normal in appearance and function. There is no significant tricuspid valve regurgitation. Pulmonic Valve: The pulmonic valve is normal in appearance and function. Trivial pulmonic valve regurgitation. Aorta: The aorta is normal. IVC: The IVC is dilated. Pericardium: No pericardial effusion. (No Signature Object) Patient: JESUS FOSTER Study Date: 11/18/2018 Page 2 of 2 12:14 PM [id number]
--- NOTE | 2018-11-19 09:00 | HOSPPROG ---
Hospitalist Progress Note Assessment/Plan: DIAGNOSES: * Acute monocular partial visual field loss right eye is due to cotton wool spot from a branch retinal vein occlusion, most likely related to his thrombocytosis * Recent splenic rupture, spontaneous with arterial embolization therapy by interventional radiologist at [facility] in October -still having some discomfort but gradually getting better * New onset atrial fibrillation, rapid rate, currently spontaneously converted to sinus -rate control on diltiazem -echo pending, TSH normal -minimal associated CHF is improving * Hyperkalemia, improving after treatment here * Polycythemia vera, with sudden increase in platelets from 400,000 to 2.9 million and significant leukocytosis with notable increase in monocytes -? New cell count changes due to splenic rupture and embolization -on increased dose of hydroxyurea -Dr. Stanford following, Dr. Maya is primary oncologist * Monocytosis and eosinophilia among his white blood cells, ? 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 Stanford today Remain inpatient, needing ongoing cardiac monitoring, monitoring closely of platelets, monitoring for bleeding, consideration of change in treatment for his marrow disorder depending on assessment of his blood smear and other tests Seen by me on hospitalist rounds and multidisciplinary rounds SUBJECTIVE: Still has same right eye only visual field loss in the upper portion of visual field, no ocular pain, no recent ocular trauma No change in left upper quadrant pain, very mild at this time, and eating well No palpitations, angina, or dyspnea OBJECTIVE Vitals reviewed: Tachycardia improving on diltiazem drip, vitals otherwise stable without fever Cook Short Order, my review: All AFib, now rate controlled Exam: alert oriented reasonably relaxed Gross bedside external ocular exam right and left is normal other than finding his dysconjugate gaze with superior gaze which is chronic; on a brief bedside visual field examination unable to determine that he has a narrow portion of the central superior visual field in the right eye only impacted with no vision there, all central vision and other visual leonard otherwise intact in both eyes skin warm dry color ok resps not labored lungs clear BSs heart regular abd soft nondistended nontender, bowel sounds present limbs warm, some edema at both ankles is mild iv site ok Lab data: Potassium now down to 4.9 Platelets remain at 2.9 million Heparin level a bit low this morning CRP fairly elevated Echocardiogram has been done but there is no report available yet, will review that with special weapons and tactics officer this morning Objective: Vital Signs Temp Pulse Resp BP Pulse Ox 36.8 C 81 15 116/63 95 11/19/18 08:02 11/19/18 07:53 11/19/18 07:53 11/19/18 08:02 11/19/18 07:53 Laboratory Results 11/19/18 04:40 11/18/18 06:20 11/18/18 11/19/18 11/20/18 06:59 06:59 06:59 Intake Total 1271.5 1148.6 Output Total 525 2375 Balance 746.5 -1226.4 PT 15.0 SEC (12.0-15.0) 11/17/18 19:15 INR 1.16 (0.83-1.16) 11/17/18 19:15 - Time Spent With Patient Time Spent with Patient: greater than 35 minutes Time Spent with Patient: Greater than 35 minutes spent on this patients care, greater than 50% of time spent counseling, educating, and coordinating care regarding the above mentioned plan. ICD10 Worksheet Patient Problems: Problems Problem Status Onset Atrial fibrillation Acute Polycythemia vera Acute Thrombocytosis Acute
[2018-11-19] MEDS: ASPIRIN EC 81 MG TAB PO SCH (09:28)
[2018-11-19] MEDS: ACETAMINOPHEN 500 MG TAB PO SCH ×2 (09:33→19:59)
[2018-11-19] MEDS: HYDROXYUREA 500 MG CAP PO SCH ×3 (09:33→19:58)
[2018-11-19] MEDS: PANTOPRAZOLE SODIUM 40 MG TAB PO SCH (09:33)
[2018-11-19] MEDS: SENNOSIDES/DOCUSATE SODIUM TAB PO SCH ×2 (09:47→20:02)
[2018-11-19] MEDS: HEPARIN/DEXTROSE 500 ML IV SCH (10:29)
--- NOTE | 2018-11-19 17:11 | SOAPPROG ---
TARAS Progress Note Assessment/Plan: Assessment: - Visual field cut - due to occlusion of retinal vessel (cotton wool spot). This is due to his hypercoagulable state due to his extreme thrombocytosis. He is back on UFH. He will be switched to a NOAC (I would favor Xarelto due to once a day dosing - in this situation, I would just start at the 20mg/day dose and skip the 15mg PO BID x 21 day initiation schedule. - A.Fib - seems to be back in sinus rhythm at this time Plan: Xarelto tomorrow D/C UFH after Xarelto started Increase Hydrea to 1000mg PO BID If he is stable, I would anticipate D/C to home over the weekend for close f/u as an outpatient. Subjective: Feels Ok. Feels a BM coming on. No unusual bleeding. No change in visual field cut. Objective: Vital Signs Temp Pulse Resp BP Pulse Ox 36.9 C 90 15 110/67 91 L 11/19/18 16:43 11/19/18 16:43 11/19/18 16:43 11/19/18 16:43 11/19/18 16:43 Laboratory Results 11/19/18 04:40 11/18/18 06:20 11/17/18 11/18/18 11/19/18 23:59 23:59 23:59 Intake Total 1000 899.1 521 Output Total 2225 2950 Balance 1000 -1325.9 -2429 PT 15.0 SEC (12.0-15.0) 11/17/18 19:15 INR 1.16 (0.83-1.16) 11/17/18 19:15 Physical Exam - Physical Exam General Appearance: alert, no apparent distress Respiratory: lungs clear Cardiac/Chest: regular rate, rhythm Abdomen: non-tender, soft Skin: warm/dry Neuro/Psych: alert, normal mood/affect, oriented x 3 ICD10 Worksheet Patient Problems: Problems Problem Status Onset Atrial fibrillation Acute Polycythemia vera Acute Thrombocytosis Acute
[2018-11-19] MEDS: TAMSULOSIN HCL 0.4 MG CAP PO SCH (19:58)
[2018-11-20] MEDS: DOXYCYCLINE HYCLATE 100 MG CAP/TAB PO SCH ×2 (01:16→17:37)
[2018-11-20] MEDS: oxyCODONE IR 5 MG TAB PO PRN ×3 (01:42→13:26)
[2018-11-20 04:52] LABS: PLATELET COUNT 2539 10^3/uL (150-400)
[2018-11-20] MEDS: HYDROXYUREA 500 MG CAP PO SCH ×2 (09:34→20:00)
[2018-11-20] MEDS: ACETAMINOPHEN 500 MG TAB PO SCH ×2 (09:34→20:00)
[2018-11-20] MEDS: SENNOSIDES/DOCUSATE SODIUM TAB PO SCH ×2 (09:35→20:00)
[2018-11-20] MEDS: DILTIAZEM SR 90 MG CAP PO SCH ×2 (09:35→20:00)
[2018-11-20] MEDS: ASPIRIN EC 81 MG TAB PO SCH (09:35)
[2018-11-20] MEDS: PANTOPRAZOLE SODIUM 40 MG TAB PO SCH (09:35)
[2018-11-20] MEDS: POLYETHYLENE GLYCOL 3350 17 GM PKT PO PRN (09:43)
[2018-11-20] MEDS: HEPARIN 10,000 UNIT/10 ML MDV (1,000 UNIT/ML) IVP PRN (13:09)
--- NOTE | 2018-11-20 15:42 | HOSPPROG ---
Hospitalist Progress Note Assessment/Plan: DIAGNOSES: * Acute monocular partial visual field loss right eye is due to cotton wool spot from a branch retinal vein occlusion, most likely related to his thrombocytosis * Recent splenic rupture, spontaneous with arterial embolization therapy by interventional radiologist at [facility] in October -still having some discomfort but gradually getting better * Polycythemia vera, with sudden increase in platelets from 400,000 to 2.9 million and significant leukocytosis with notable monocytosiss and lymphocytos -? New cell count changes due to splenic rupture/embolization or transformation of PCV (smear studies negative) -on increased dose of hydroxyurea here w some decrease plts -Dr. Stanford following, Dr. 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, unchanged at this time PLANS: * will change to xarelto at this time, (begin at 20/day as per hematology rec's) * further increased dose of Hydrea at 1000 tid * Follow platelet counts and hemoglobin closely * Follow closely for any signs of bleeding or any other signs of thrombosis * continue heat and elevation for iv phlebitis/cellulitis and add doxycycline ( Had severe penicillin reaction as child so try doxy instead of keflex) * recheck electrolytes * potentially home over next couple days I have reviewed in detail with Dr Stanford today SUBJECTIVE: Still has same right eye only visual field loss in the upper portion of visual field, no ocular pain, no recent ocular trauma No change in left upper quadrant pain, very mild at this time, and eating well No palpitations, angina, or dyspnea pain and swelling at iv site L arm (iv had been removed yest) OBJECTIVE Vitals reviewed: Tachycardia improving on diltiazem, vitals otherwise stable without fever 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, 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: All AFib, now rate controlled Exam: alert oriented reasonably relaxed Gross bedside external ocular exam right and left is normal other than finding his dysconjugate gaze with superior gaze which is chronic; on a brief bedside visual field examination unable to determine that he has a narrow portion of the central superior visual field in the right eye only impacted with no vision there, all central vision and other visual leonard otherwise intact in both eyes skin warm dry color ok resps not labored lungs clear BSs heart regular abd soft nondistended nontender, bowel sounds present limbs warm, ankle edema better L forearm with cellulitis a tender edema at prior iv site, no fluctuance iv site ok Lab data: wbc up at 40 K with persisting monocytosis and now a few 1000 lymphocytes as well platelets down to 2.5 million stable anemia blood smear studies with no histo or immuno evidence of leukemia/lymphoma Echocardiogram at admission normal Objective: Vital Signs Temp Pulse Resp BP Pulse Ox 36.8 C 94 15 122/71 H 94 11/20/18 07:22 11/20/18 12:00 11/20/18 12:00 11/20/18 12:00 11/20/18 12:00 Laboratory Results 11/20/18 04:00 11/18/18 06:20 11/19/18 11/20/18 11/21/18 06:59 06:59 06:59 Intake Total 1148.6 1150 450 Output Total 2375 3480 2425 Balance -1226.4 -2330 -1975 PT 15.0 SEC (12.0-15.0) 11/17/18 19:15 INR 1.16 (0.83-1.16) 11/17/18 19:15 - Time Spent With Patient Time Spent with Patient: greater than 35 minutes Time Spent with Patient: Greater than 35 minutes spent on this patients care, greater than 50% of time spent counseling, educating, and coordinating care regarding the above mentioned plan. ICD10 Worksheet Patient Problems: Problems Problem Status Onset Atrial fibrillation Acute Polycythemia vera Acute Thrombocytosis Acute
--- NOTE | 2018-11-20 16:07 | SOAPPROG ---
TARAS Progress Note Assessment/Plan: Assessment: - Visual field cut - due to occlusion of retinal vessel (cotton wool spot). This is due to his hypercoagulable state due to his extreme thrombocytosis. He is back on UFH. Xarelto started today at 20 mg. His plts are down to 2.5M. We should continue his current dose of hydrea (1000mg PO BID). This will be adjusted as an outpatient. - A.Fib - seems to be back in sinus rhythm at this time Plan: - Probable discharge in AM - He needs f/u in office next week - Continue Hydrea 1000mg PO BID - Continue Xarelto 20mg/day Subjective: Minor L forearm pain from superficial thrombophlebitis Objective: Vital Signs Temp Pulse Resp BP Pulse Ox 36.8 C 94 15 122/71 H 94 11/20/18 07:22 11/20/18 12:00 11/20/18 12:00 11/20/18 12:00 11/20/18 12:00 Laboratory Results 11/20/18 04:00 11/18/18 06:20 11/18/18 11/19/18 11/20/18 23:59 23:59 23:59 Intake Total 899.1 1171 950 Output Total 2225 2950 3630 Balance -1325.9 -1779 -2680 PT 15.0 SEC (12.0-15.0) 11/17/18 19:15 INR 1.16 (0.83-1.16) 11/17/18 19:15 Physical Exam - Physical Exam General Appearance: alert, no apparent distress Respiratory: lungs clear Cardiac/Chest: regular rate, rhythm Abdomen: normal bowel sounds Skin: pallor, No rash ICD10 Worksheet Patient Problems: Problems Problem Status Onset Atrial fibrillation Acute Polycythemia vera Acute Thrombocytosis Acute
[2018-11-20] MEDS: RIVAROXABAN 20 MG TAB PO SCH (17:37)
[2018-11-20] MEDS: TAMSULOSIN HCL 0.4 MG CAP PO SCH (20:00)
[2018-11-21] MEDS: oxyCODONE IR 5 MG TAB PO PRN ×4 (01:15→20:29)
[2018-11-21] MEDS: ACETAMINOPHEN 500 MG TAB PO SCH ×2 (08:27→20:27)
[2018-11-21] MEDS: ASPIRIN EC 81 MG TAB PO SCH (08:28)
[2018-11-21] MEDS: DOXYCYCLINE HYCLATE 100 MG CAP/TAB PO SCH ×2 (08:29→20:29)
[2018-11-21] MEDS: SENNOSIDES/DOCUSATE SODIUM TAB PO SCH ×2 (08:29→20:29)
[2018-11-21] MEDS: PANTOPRAZOLE SODIUM 40 MG TAB PO SCH (08:29)
[2018-11-21] MEDS: HYDROXYUREA 500 MG CAP PO SCH ×2 (08:30→20:30)
[2018-11-21] MEDS: DILTIAZEM SR 90 MG CAP PO SCH ×2 (08:30→20:29)
[2018-11-21] MEDS: POLYETHYLENE GLYCOL 3350 17 GM PKT PO PRN (08:43)
[2018-11-21 10:17] LABS: PLATELET COUNT 2538 10^3/uL (150-400)
[2018-11-21] MEDS ORDERED: TEARS/DEXTRAN 70/HYPROMELLOSE 15 ML OPHT.BTL EACHEYE PRN (11:59)
--- NOTE | 2018-11-21 12:36 | HOSPPROG ---
Hospitalist Progress Note Assessment/Plan: Patient with history of polycythemia vera and thrombocytosis is admitted with branch retinal vein occlusion and visual loss. Evaluation included MRI, CT angiograms. It was thought that this is most likely related to his thrombocytosis. His hospitalization has been complicated by new onset AFib likely related to his recent splenic rupture and some mild electrolyte abnormalities as well as his chronic medical issues. # branch retinal vein occlusion with acute partial visual field loss in the right eye. Likely related to his thrombocytosis * Stroke workup including MRI of brain, CT angiogram of the head neck, and echocardiogram all unremarkable as to acute cause * Anticoagulation with Xarelto # recent splenic rupture, spontaneous with arterial embolization at [facility] in October still with some left upper quadrant pain # hyponatremia, unclear etiology has been present since his admission. Given the hyponatremia and hyperkalemia will check cortisol levels to rule out adrenal insufficiency as a cause. * Cortrosyn stim test in a.m. * Fluid restriction for 2 L * Encourage p. O. Intake especially protein # hyperkalemia: Long-term issues likely secondary to hemolysis, chronic. Will continue to monitor and rule out adrenal insufficiency # polycythemia vera with cysts increase in thrombocytosis and leukocytosis. Appreciate oncology follow-up * Continued increased dose of hydroxyurea and aspirin * Follow up with Oncology with Dr. Bravo # new onset AFib, rapid rate with spontaneous conversion to sinus rhythm * On Xarelto for anticoagulation * Echo normal, TSH normal * Rate controlled with diltiazem # mild phlebitis left upper arm. Treat symptomatically and treating for possible cellulitis # von Willebrand's disease, prior history of both bleeding episodes as well as pulmonary emboli # chronic diplopia I Subjective: Complain of his left eye feeling scratchy but no visual changes. Has not been very hungry and drinking a little more water than usual. Objective: Vital Signs Temp Pulse Resp BP Pulse Ox 37.0 C 91 18 120/75 97 11/21/18 07:11 11/21/18 07:11 11/21/18 07:11 11/21/18 07:11 11/21/18 07:11 Laboratory Results 11/21/18 08:22 11/21/18 08:22 11/20/18 11/21/18 11/22/18 05:59 05:59 05:59 Intake Total 1150 2090 Output Total 3480 4425 700 Balance -2330 -2335 -700 PT 15.0 SEC (12.0-15.0) 11/17/18 19:15 INR 1.16 (0.83-1.16) 11/17/18 19:15 - Physical Exam Constitutional: no apparent distress Eyes: PERRL, anicteric sclera, EOMI Ears, Nose, Mouth, Throat: moist mucous membranes Cardiovascular: regular rate and rhythym Respiratory: no respiratory distress, clear to auscultation Gastrointestinal: normoactive bowel sounds, soft, non-tender abdomen Genitourinary: no bladder fullness Skin: warm Neurologic: AAOx3 Psychiatric: interacting appropriately ICD10 Worksheet Patient Problems: Problems Problem Status Onset Thrombocytosis Acute Polycythemia vera Acute Atrial fibrillation Acute
--- NOTE | 2018-11-21 13:04 | SOAPPROG ---
SOAP Progress Note Assessment/Plan: Assessment: SOAP Progress Note Assessment/Plan: Assessment: - Visual field cut - due to occlusion of retinal vessel (cotton wool spot). This is due to his hypercoagulable state due to his extreme thrombocytosis. On Xarelto at 20 mg. His plts are down to 2.5M, but same as yesterday. Would continue his current dose of hydrea (1000mg PO BID). If platelets not dropping tomorrow, could consider increasing hydrea - A.Fib - seems to be back in sinus rhythm at this time -Phlebitis-? concurrent cellulitis, appears superficial Plan: - He needs f/u in office next week - Continue Hydrea 1000mg PO BID for now - Continue Xarelto 20mg/day -von willebrand studies are pending. Can have acquired vonwillebrands with platelet count above 1M, if labs consistent with that, he would be at increase risk for bleed and would probably stop ASA -low threshold to ultrasound left arm if symptoms progress. At this time, phlebitis appears superficial Plan: 11/21/18 13:04 11/21/18 13:05 11/21/18 13:14 Subjective: feels well other than new phlebitis in left forearm Objective: Vital Signs Temp Pulse Resp BP Pulse Ox 37.2 C 93 18 116/68 94 11/21/18 12:00 11/21/18 12:00 11/21/18 12:00 11/21/18 12:00 11/21/18 12:00 Laboratory Results 11/21/18 08:22 11/21/18 08:22 11/20/18 11/21/18 11/22/18 05:59 05:59 05:59 Intake Total 1150 2090 Output Total 1358 4490 1300 Balance -2330 -2335 -1300 PT 15.0 SEC (12.0-15.0) 11/17/18 19:15 INR 1.16 (0.83-1.16) 11/17/18 19:15 Physical Exam - Physical Exam General Appearance: alert, no apparent distress EENT: other (vision stable) Respiratory: lungs clear Abdomen: soft, other (slight tenderness in LUQ) Extremities: other (phlebitis in left forearm at site of prior IV) ICD10 Worksheet Patient Problems: Problems Problem Status Onset Atrial fibrillation Acute Polycythemia vera Acute Thrombocytosis Acute
--- NOTE | 2018-11-21 14:54 | ASMTCMCOM ---
CM Note CM Note Notes: 11/21/2018 Case Management Note Reviewed chart. Discussed with RN. Hyponatremia and hyperkalemia are requiring further work up today. There are no therapy evals ordered at this time. Case Management d/c poc: anticipating independent with follow up as directed. Case Management to follow. Date Signed: 11/21/2018 02:54 PM Electronically Signed By:Renetta Dobbins RN
[2018-11-21] MEDS: RIVAROXABAN 20 MG TAB PO SCH (18:28)
[2018-11-21] MEDS: MELATONIN 3 MG TAB PO PRN (20:29)
[2018-11-21] MEDS: TAMSULOSIN HCL 0.4 MG CAP PO SCH (20:29)
[2018-11-22] MEDS: oxyCODONE IR 5 MG TAB PO PRN ×4 (01:54→20:27)
[2018-11-22] MEDS ORDERED: COSYNTROPIN 0.25 MG/2 ML SYRINGE IVP ONE (06:00)
[2018-11-22 06:03] LABS: PLATELET COUNT 2657 10^3/uL (150-400)
[2018-11-22] MEDS ORDERED: SODIUM ZIRCONIUM CYCLOSILICATE 10 GM PACKET PO ONE (07:27)
[2018-11-22] MEDS: DOXYCYCLINE HYCLATE 100 MG CAP/TAB PO SCH ×2 (10:36→21:05)
[2018-11-22] MEDS: SENNOSIDES/DOCUSATE SODIUM TAB PO SCH ×2 (10:36→22:50)
[2018-11-22] MEDS: DILTIAZEM SR 90 MG CAP PO SCH ×2 (10:36→21:06)
[2018-11-22] MEDS: HYDROXYUREA 500 MG CAP PO SCH ×2 (10:37→21:05)
[2018-11-22] MEDS: PANTOPRAZOLE SODIUM 40 MG TAB PO SCH (10:37)
[2018-11-22] MEDS: ASPIRIN EC 81 MG TAB PO SCH (10:37)
[2018-11-22] MEDS: ACETAMINOPHEN 500 MG TAB PO SCH ×2 (10:57→21:05)
--- NOTE | 2018-11-22 11:10 | SOAPPROG ---
SOAP Progress Note Assessment/Plan: Assessment: SOAP Progress Note Assessment/Plan: Assessment: - P. vera-s/p splenic embolization for splenic rupture. Marked leukocytosis and thrombocytosis developing after event. - Visual field cut - due to occlusion of retinal vessel (cotton wool spot). On Xarelto at 20 mg. No new visual symptoms - Thrombocytosis/Leukocytosis-marked difference compared to prior counts over the years. Suspect due to splenic rupture/embolization, but may need BM biopsy ( as outpatient) to confirm there hasn't been transformation to CMML (has monocytosis) or other marrow process. For now will increase hydrea and premedicate with zofran. nausea would be common with this increased dose. - A.Fib - seems to be back in sinus rhythm at this time -Hyperkalemia-likely pseudohyperkalemia due to extreme thrombocytosis. Could confirm this with a plasma potassium. -Phlebitis-concurrent cellulitis. More indurated and focal today. Plan: - Increase Hydrea to 1500 mg PO BID with zofran premed - Continue Xarelto 20mg/day -von willebrand studies are pending. Can have acquired vonwillebrands with platelet count above 1M, if labs consistent with that, he would be at increase risk for bleed and would probably stop ASA -Ultrasound of left forearm, rule out phlebitis, fluid collection. -Could do plasma K to rule out pseudohyperkalemia -will discuss with Dr. Tobin Plan: 11/21/18 13:04 11/21/18 13:05 11/21/18 13:14 11/22/18 11:03 Subjective: no new visual symptoms, concerned about increasing pain/erythema in left forearm Objective: Vital Signs Temp Pulse Resp BP Pulse Ox 36.8 C 98 18 122/66 H 92 11/22/18 08:00 11/22/18 10:36 11/22/18 08:00 11/22/18 10:36 11/22/18 08:00 Laboratory Results 11/22/18 04:50 11/22/18 06:45 11/21/18 11/22/18 11/23/18 05:59 05:59 05:59 Intake Total 1080 1750 Output Total 7887 7333 Balance -2335 -1575 PT 15.0 SEC (12.0-15.0) 11/17/18 19:15 INR 1.16 (0.83-1.16) 11/17/18 19:15 Physical Exam - Physical Exam General Appearance: alert, no apparent distress EENT: other (vision is stable) Respiratory: lungs clear Abdomen: soft, other (slight tenderness in LUQ) Extremities: other (left forearm with increased erythema and indurationm tender) Neuro/Psych: alert, normal mood/affect ICD10 Worksheet Patient Problems: Problems Problem Status Onset Atrial fibrillation Acute Polycythemia vera Acute Thrombocytosis Acute
--- NOTE | 2018-11-22 14:16 | HOSPPROG ---
Hospitalist Progress Note Assessment/Plan: Patient with history of polycythemia vera and thrombocytosis is admitted with branch retinal vein occlusion and visual loss. Evaluation included MRI, CT angiograms. It was thought that this is most likely related to his thrombocytosis. His hospitalization has been complicated by new onset AFib likely related to his recent splenic rupture and some mild electrolyte abnormalities as well as his chronic medical issues. # branch retinal vein occlusion with acute partial visual field loss in the right eye. Likely related to his thrombocytosis * Stroke workup including MRI of brain, CT angiogram of the head neck, and echocardiogram all unremarkable as to acute cause * Anticoagulation with Xarelto # recent splenic rupture, spontaneous with arterial embolization at [facility] in October still with some left upper quadrant pain # hyponatremia, unclear etiology has been present since his admission. Improved overnight. * check plasma sodium * loosen fluid restriction. # hyperkalemia: pseudohyperkalemia? due to thrombocytosis. No obvious medications * check plasma potassium * low K diet * increase fluids. # Constipation. add suppository. # polycythemia vera with cysts increase in thrombocytosis and leukocytosis. Appreciate oncology follow-up * Continued increased dose of hydroxyurea and aspirin * Follow up with Oncology with Dr. Bravo # new onset AFib, rapid rate with spontaneous conversion to sinus rhythm * On Xarelto for anticoagulation * Echo normal, TSH normal * Rate controlled with diltiazem # mild phlebitis left upper arm. Treat symptomatically and treating for possible cellulitis * Ultrasound confirmed superficial thrombophlebitis # von Willebrand's disease, prior history of both bleeding episodes as well as pulmonary emboli # chronic diplopia I Subjective: Continues to complain of phlebitis on left forearm. Objective: Vital Signs Temp Pulse Resp BP Pulse Ox 36.5 C 113 H 18 125/70 H 90 L 11/22/18 11:49 11/22/18 11:49 11/22/18 11:49 11/22/18 11:49 11/22/18 11:49 Laboratory Results 11/22/18 04:50 11/22/18 06:45 11/21/18 11/22/18 11/23/18 05:59 05:59 05:59 Intake Total 2090 1750 Output Total 4702 1915 Balance -2335 -1575 PT 15.0 SEC (12.0-15.0) 11/17/18 19:15 INR 1.16 (0.83-1.16) 11/17/18 19:15 - Physical Exam Constitutional: not in pain Eyes: PERRL Ears, Nose, Mouth, Throat: moist mucous membranes Cardiovascular: regular rate and rhythym Respiratory: no respiratory distress, clear to auscultation Gastrointestinal: soft, non-tender abdomen Skin: warm, erythema, other (Phlebitis left upper arm) Musculoskeletal: full muscle strength Neurologic: AAOx3 Psychiatric: interacting appropriately ICD10 Worksheet Patient Problems: Problems Problem Status Onset Thrombocytosis Acute Polycythemia vera Acute Atrial fibrillation Acute
[2018-11-22] MEDS: POLYETHYLENE GLYCOL 3350 17 GM PKT PO PRN (15:03)
[2018-11-22] MEDS: RIVAROXABAN 20 MG TAB PO SCH (18:11)
[2018-11-22] MEDS: ONDANSETRON DISINTEGRATING 4 MG TAB PO SCH (20:28)
[2018-11-22] MEDS: TAMSULOSIN HCL 0.4 MG CAP PO SCH (21:06)
[2018-11-22] MEDS: MELATONIN 3 MG TAB PO PRN (22:50)
[2018-11-23] MEDS: oxyCODONE IR 5 MG TAB PO PRN (04:04)
[2018-11-23 05:51] LABS: PLATELET COUNT 2693 10^3/uL (150-400)
[2018-11-23 08:05] VITALS: BP 115/66
[2018-11-23] MEDS: ONDANSETRON DISINTEGRATING 4 MG TAB PO SCH (08:34)
--- NOTE | 2018-11-23 09:05 | CPEKG ---
Test Reason : OPEN Blood Pressure : / mmHG Vent. Rate : 100 BPM Atrial Rate : 101 BPM P-R Int : 168 ms QRS Dur : 088 ms QT Int : 352 ms P-R-T Axes : 046 005 009 degrees QTc Int : 454 ms Sinus tachycardia Probable left atrial enlargement Borderline T wave abnormalities Confirmed by Preston Westbrook ([id number]) on 11/23/2018 9:05:11 AM Referred By: Stas Lugo Confirmed By:Preston Westbrook
--- NOTE | 2018-11-23 09:11 | SOAPPROG ---
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 Given that the patient has had 2 episodes of thrombosis related to this, I think he would benefit from plateletpharesis. I discussed this with him today. This cannot be done at [facility]. I have recommended transfer to [facility] for plateletpharesis. I spoke with Dr. Jose Maria Jain at [facility] who agrees that this is indicated. He has accepted the patient in transfer. For now Hydrea will continue as well as ASA / Xarelto. Plan plateletpharesis later today at [facility]. Plan discussed in detail with patient and , as well as Dr. Tobin (Hospitalist ) and nursing. 11/23/18 09:06 11/23/18 09:07 Subjective: Still with LUQ pain, though somewhat improved. Visual field deficit unchanged. Denies bleeding. Objective: Vital Signs Temp Pulse Resp BP Pulse Ox 36.8 C 88 18 115/66 94 11/23/18 08:00 11/23/18 08:00 11/23/18 08:00 11/23/18 08:00 11/23/18 08:00 Laboratory Results 11/23/18 05:05 11/22/18 14:57 11/22/18 11/23/18 11/24/18 05:59 05:59 05:59 Intake Total 1750 1480 Output Total 3325 975 Balance -1575 505 PT 15.0 SEC (12.0-15.0) 11/17/18 19:15 INR 1.16 (0.83-1.16) 11/17/18 19:15 - Time Spent With Patient Time Spent With Patient: 45 minutes including discussion with Dr. Jain at [facility] and coordinating transfer. Physical Exam - Physical Exam General Appearance: alert, no apparent distress EENT: PERRL/EOMI Abdomen: soft, other (LUQ tenderness) Skin: normal color Neuro/Psych: alert, normal mood/affect ICD10 Worksheet Patient Problems: Problems Problem Status Onset Atrial fibrillation Acute Polycythemia vera Acute Thrombocytosis Acute
[2018-11-23] MEDS: DOXYCYCLINE HYCLATE 100 MG CAP/TAB PO SCH (09:23)
[2018-11-23] MEDS: SENNOSIDES/DOCUSATE SODIUM TAB PO SCH (09:23)
[2018-11-23] MEDS: HYDROXYUREA 500 MG CAP PO SCH (09:23)
[2018-11-23] MEDS: ASPIRIN EC 81 MG TAB PO SCH (09:24)
[2018-11-23] MEDS: DILTIAZEM SR 90 MG CAP PO SCH (09:24)
[2018-11-23] MEDS: PANTOPRAZOLE SODIUM 40 MG TAB PO SCH (09:24)
[2018-11-23] MEDS: ACETAMINOPHEN 500 MG TAB PO SCH (09:24)
--- NOTE | 2018-11-23 10:14 | PDIAF ---
- Diagnosis Diagnosis: thrombocytosis, retinal vein thrombus (branch), superficial thrombophlebiti Code Status: Full Code - Medication Management Discharge Medications: electronically signed and located in the Home Medication List. - Orders Services needed: Registered Nurse Isolation Type: Chemotherapy Isolation Diet Recommendation: no restrictions on diet Diet Texture: Regular Texture Diet - Follow Up Care Current Providers and Referrals: Ivonne Barraza MD [Primary Care Provider] -
--- NOTE | 2018-11-23 11:23 | ASDISCHSUM ---
Discharge Information Plan Status:Acute Transfer Medically Cleared to Leave: Discharge Date: D/C Disposition:[facility] ADT D/C Disposition:[facility] Projected Discharge Date:11/23/2018 12:00 AM Transportation at D/C:ALS/BLS Discharge Delay Reason: Follow-Up Date:11/23/2018 12:00 AM Discharge Slot: Final Diagnosis: Placement Information Patient Contact Information Contact Name:HARINDER Relationship: Address:[address] [place] [address] City:[facility] Phone: State/Zip Code:[place] [address] Email: Financial Information Financial Class:HMO and PPO Plans Primary Plan Desc:KYLE Primary Plan Number:[id number] Secondary Plan Desc: Secondary Plan Number: Assessment Information LACE LACE Length of stay for Answers: 4-6 days current admission Acuity / Level of Answers: Yes Care: Did the patient have an inpatient admission? Comorbidities - select Answers: Other Notes: Von Willebrand all that apply disease; HTN; Hx of PE # of Emergency department Answers: 1-2 visits in the last 6 months Score: 9 Date Signed: 11/23/2018 11:23 AM Electronically Signed By:SORAIDA Khalil [facility] Initial CM Assessment Living Arrangements What is your living Answers: With Spouse arrangement? Who do you live with? Type Of Residence What kind of residence do Answers: House you live in? Discharge Plan Comments Coordination Status Comments Notes: Patient is a 62yo male who has been admitted for right eye vision loss, concerning for CVA, AFIB, thrombocytosis, recent splenic injury, hyperkalemia, anemia and hyponatremia. No therapies ordered at this time. D/C plan TBD. CM will follow. Date Signed: 11/18/2018 11:57 AM Electronically Signed By:Senia Garcia LCSW [facility] CM Progress Note CM Note CM Note Notes: 11/21/2018 Case Management Note Reviewed chart. Discussed with RN. Hyponatremia and hyperkalemia are requiring further work up today. There are no therapy evals ordered at this time. Case Management d/c poc: anticipating independent with follow up as directed. Case Management to follow. Date Signed: 11/21/2018 02:54 PM Electronically Signed By:Renetta Dobbins RN Case Management Discharge Plan Note Case Management Discharge Discharge Order Complete? Answers: Yes Patient to Obtain Answers: Other Notes: [facility] Medications Transportation Arranged Answers: Other Notes: [facility] Transport will Pick (Date 11/23/2018 11:30 AM & Time) EMTALA Complete Answers: Yes Case Management Transport Answers: Yes Form Complete Faxed Final Orders Answers: Yes Agency/Facility Transfer Answers: Yes Report Printed & Faxed to Receiving Agency Family Notified Answers: Yes Discharge Comments Notes: Pt is being transfered to [facility]. Transportation was arranged by [facility] for 11:30 with [place]. CM spoke with RN, who informed pt and family. CM completed discharge ppwk packet and completed EMTALA and PCS form. No other CM needs identified. Date Signed: 11/23/2018 11:22 AM Electronically Signed By:SORAIDA Khalil Intervention Information
--- NOTE | 2018-11-23 11:23 | ASMTDCNOTE ---
Case Management Discharge Discharge Order Complete? Answers: Yes Patient to Obtain Answers: Other Notes: [facility] Medications Transportation Arranged Answers: [facility]Date 11/23/2018 11:30 AM & Time) EMTALA Complete Answers: Yes Case Management Transport Answers: Yes Form Complete Faxed Final Orders Answers: Yes Agency/Facility Transfer Answers: Yes Report Printed & Faxed to Receiving Agency Family Notified Answers: Yes Discharge Comments Notes: Pt is being transfered to [facility]. Transportation was arranged by [facility] for 11:30 with [place]. CM spoke with RN, who informed pt and family. CM completed discharge ppwk packet and completed EMTALA and PCS form. No other CM needs identified. Date Signed: 11/23/2018 11:22 AM Electronically Signed By:SORAIDA Khalil
--- NOTE | 2018-11-23 11:36 | GDS ---
[f rep st] DISCHARGE SUMMARY DIAGNOSES: 1. Essential thrombocytosis with evidence of thrombosis. 2. Branch retinal vein occlusion secondary to #1. 3. Left upper extremity superficial thrombophlebitis secondary to #1. 4. Pseudohyperkalemia, plasma potassium levels were normal. 5. Recent splenic rupture, status post arterial embolization at [facility] in October. 6. Constipation. 7. Polycythemia. 8. New onset atrial fibrillation with spontaneous conversion to sinus rhythm, currently on Xarelto for anticoagulation, rate controlled with diltiazem. 9. Questionable cellulitis versus superficial inflammatory phlebitis on left upper arm, currently on antibiotics. 10. Von Willebrand's disease. 11. Chronic diplopia. CONSULTATIONS: Hematology. PROCEDURES DONE: 1. Brain MRI: No acute intracranial findings. 2. Echocardiogram: EF of 70%. No regional wall motion abnormalities. HOSPITAL COURSE: The patient is a 62-year-old who was recently admitted to [facility] with an acute splenic rupture. This was treated with arterial embolization by Interventional Radiology at [facility] in October. He returned after having monocular partial visual loss of his right eye. He had an emergent ophthalmological exam by Dr. Gupta. Evaluation was for a branch retinal vein occlusion. Evaluation did note significant thrombocytosis with a count of almost 2.9 million, associated with significant leukocytosis. Oncology saw him and initially did a trial of hydroxyurea in the hospital. Over the course of his hospitalization, his thrombocytosis remained elevated. He then developed a superficial thrombophlebitis at an IV site on his left forearm. Because of this, Oncology felt that he would benefit from plasmapheresis, so we will be transferring to [facility] for platelet pheresis. Other issues include atrial fibrillation. This is I suspect secondary to his splenic rupture and acute illness. He spontaneously converted to sinus rhythm. His echocardiogram was unremarkable. He is on anticoagulation with Xarelto and on diltiazem for rate control. He had evidence of elevated hyperkalemia that has been going on for quite some time. I did check a plasma potassium level which was within normal limits and may be a pseudohyperkalemia due to the thrombocytosis. His other issues remained relatively stable throughout his stay. CONDITION ON DISCHARGE: Good. He has been afebrile. Heart rate 88, blood pressure 115/66. He is 94% on room air. DISCHARGE MEDICATIONS: Please see discharge medication form. Of note, he is on Xarelto for anticoagulation, as well as an aspirin. He has been on elevated doses of hydroxyurea without clear improvement in his thrombocytosis yet. He also is on doxycycline for a few more days to treat possible secondary cellulitis from the superficial thrombophlebitis. Total time spent with patient on day of discharge and continuity of care is 35 minutes. Copy requested to: [facility] /[id number]/MODL [email or web address]
== END 2018-11-23 11:53 | disposition short-term general hospital (02) | DRG 815 ==
LOC: OBSVTOIN 21:29 → F2N 23:30 → F2W 11-19 10:47
PROVIDERS: ADMIT Internal Medicine; ATTEND Internal Medicine
DX: D47.3 Essential (hemorrhagic) thrombocythemia (principal); H34.8312 Tributary (branch) retinal vein occlusion, right eye, stable; I80.8 Phlebitis and thrombophlebitis of other sites; I48.91 Unspecified atrial fibrillation; D68.0 Von Willebrand disease; D45 Polycythemia vera; D50.9 Iron deficiency anemia, unspecified; R10.12 Left upper quadrant pain; E87.5 Hyperkalemia; E87.1 Hypo-osmolality and hyponatremia; E86.0 Dehydration; I10 Essential (primary) hypertension; H53.2 Diplopia; H40.023 Open angle with borderline findings, high risk, bilateral; H52.13 Myopia, bilateral; Z86.718 Personal history of other venous thrombosis and embolism; Z79.82 Long term (current) use of aspirin
CPT/HCPCS: 82435-PO; 82565-PO; 82947-PO; 84132-PO; 84295-PO; 84484-ER; 84520-PO; 85014-ER; 85240-90; 85245-90; 85246-90; 85520-90; A9585; J0834; J1644; J2405; Q9967

== ENCOUNTER → 2019-02-22 | Outpatient (CLI) | payer OTHER ==
[~2019-02-22] MED LIST: IOPAMIDOL (ISOVUE-300) 100 ML BTL ONE
== END ==
LOC: FIMAGING 15:27
PROVIDERS: ATTEND Nurse Practitioner
DX: R10.9 Unspecified abdominal pain (principal); D47.1 Chronic myeloproliferative disease; D75.1 Secondary polycythemia; D73.5 Infarction of spleen
CPT/HCPCS: Q9967